=== PATIENT | male | born 1955 | race Caucasian/White ===

== ENCOUNTER 2017-01-14 16:54 | Inpatient (IN) | payer OTHER ==
[~2017-01-14] VITALS: Ht 177.8 cm; Wt 105.2 kg
--- NOTE | ~2017-01-14 | HC ---
[facility] [place] [address] CONSULTATION Name: BLAINE GARDINER WOLF Room #: 311-P ADM IN M.R.#: [id number] Admission: 01/14/17 Attend Phys: Carlos Gonzales MD Discharge: Date of : 55 Report #: [id number] THIS REPORT FOR: //name// CC: LEANDRO physician/PCP Carlos Gonzales DATE OF SERVICE: 01/15/2017 INDICATION: Chest pain. HISTORY OF PRESENT ILLNESS: This is a 61-year-old gentleman presenting with recurrent chest pains. He has complicated cardiac history with previous MN and multiple stent procedures. The majority of which occurred in [facility], had been following ____. He has also been at other institutions including [facility], [place] and [facility]. The patient reports that he previously had a cardiac catheterization at [facility] about 2 months ago. He reports undergoing a balloon angioplasty procedure; however, a stent was not placed. He reports having chest pains on and off. He describes a discomfort in the substernal area, radiating up the left shoulder. He has been also experiencing some abdominal discomfort and vomiting for the past 1 week. He denies any episodes of fever, chills, dyspnea or congestion. PAST MEDICAL HISTORY: CAD with multiple stents, mainly followed at [facility]. Nuclear stress test from 11/2015 is nonischemic from [facility]. Known to have normal LV systolic function. Previous TIA/CVA. History of diabetes mellitus with gastroparesis. COPD, hypertension, hyperlipidemia and arthritis. ALLERGIES: CODEINE, CONTRAST. MEDICATIONS: Include Plavix, Ranexa 1000 mg twice a day, Lipitor, Imdur, carvedilol 25 mg b.i.d., lisinopril, aspirin, Cymbalta, Protonix, insulin. SOCIAL HISTORY: Positive for tobacco use, smoking few cigarettes per day. FAMILY HISTORY: Positive for premature CAD. REVIEW OF SYSTEMS: A full 10-point review of systems performed, only the pertinent positives and negatives are described in the HPI. PHYSICAL EXAMINATION: VITAL SIGNS: Blood pressure is 170/90, heart rate is 60 beats per minute. GENERAL APPEARANCE: This is an overweight male, in no acute respiratory distress. HEAD AND EYES: Normocephalic. Sclerae anicteric. ENT: Oral mucosa moist. [facility] [address] [place] [address] CONSULTATION Name: BLAINE GARDINER DAVEY Room #: 311-P [facility] IN .R.#: [id number] Admission: 01/14/17 Attend Phys: Carlos Gonzales MD Discharge: Date of : 55 Report #: [id number] NECK: Supple. LUNGS: Clear to auscultation. CARDIAC: Regular rate and rhythm, S1 and S2 positive. ABDOMEN: Protuberant, soft, nontender. EXTREMITIES: No cyanosis, no edema. NEUROLOGIC: Alert and oriented x 3. LABORATORY VALUES: Sodium is 136, potassium is 4.3, creatinine is 1.3. Serial troponin levels are negative. ECG reveals sinus rhythm, previous septal MN. No acute ST segment changes. This is unchanged from prior tracings. ASSESSMENT AND PLAN: 1. Chest pain syndrome, his troponin level and ECG are unremarkable. Unclear if this is cardiac related. He has had multiple cardiac procedures, mainly at [facility]. His last procedure according to the patient was at [facility]. I am not convinced that all of his symptoms are ischemic related. Would proceed with noninvasive stress testing. 2. Coronary artery disease/myocardial infarction/stent, continue with medical therapy including Ranexa and nitro. 3. Hypertension elevated, we will need to adjust his medications. 4. Diabetes mellitus, continue meds. Check fingersticks. 5. Hypercholesterolemia, continue with statin therapy. 6. Cerebrovascular accident, no neurologic deficits presently. Thank you for allowing me to participate in the care of your patient. <ELECTRONICALLY SIGNED> By: Jose Sorensen MD 01/15/17 1656 0843 0909 Jose Sorensen MD /nt
--- NOTE | ~2017-01-14 | EKG ---
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
--- NOTE | ~2017-01-14 | EKG ---
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 : 1955 Requested By: Roshni Yousif Order Number: [id number] MD: Woody Cueto Measurements Intervals [place] Rate: 59 P: 44 MS: 171 QRS: 34 QRSD: 88 T: 61 QT: 449 QTc: 445 Interpretive Statements Sinus rhythm Anteroseptal infarct, old Baseline wander in lead(s) V4,V5,V6 Compared to ECG 12/04/2015 07:29:53 No significant changes Electronically Signed On 01-15-2017 9:56:33 CDT by Woody Cueto [email or web address] <ELECTRONICALLY SIGNED> By: Woody Cueto MD, [facility] 01/15/17 0956 0623 0623 Woody Cueto MD, [facility] /EPI
--- NOTE | ~2017-01-14 | H ---
[facility] [place] [address] HISTORY AND PHYSICAL Name: BLAINE GARDINER Room #: 311-P ADM IN M.R.#: [id number] Admission: 01/14/17 Attend Phys: Luis Mancilla Discharge: Date of : 55 Report #: [id number] THIS REPORT FOR: //name// CC: FAM physician/PCP Luis Mancilla ATTENDING PHYSICIAN: Luis Mancilla M.D. PRIMARY CARE PHYSICIAN: Silvia Meier M.D. CHIEF COMPLAINT: Chest pain. HISTORY OF PRESENT ILLNESS: The patient is a 61-year-old male who has a history of extensive coronary artery disease. He states he has at least 20 stents in his heart. He is from [facility] but today, he wanted to take the bus to this area to check on his ex-'s house. He states he is on disability and he does not get out much and he wanted to "go for a ride." While he was on the bus, he started having some chest pain. He said he got diaphoretic. The pain was wheezing and radiated to his left shoulder. He states it felt similar to when he had prior [place]. He states he really has not felt well on all week. He has been having some stomach pains with vomiting and diarrhea as well. He states he takes his Plavix regularly. He denied any shortness of breath. He was able to get the bus to bring him to the ER. He normally sees a hostess cashier, Dr. Scales at [place], which was where he has had most of his stents placed. Although, he also reports that he has been at [facility] and [facility]. He reports his last cardiac catheterization was at [facility] 2 months ago and he was seen by Cardiology there, who told him that some of his stents were getting blocked. He states he has never been a candidate to have an open heart surgery because he is too high risk. He has never had a CABG. He states that he often does have chest pain at home, but he rarely takes nitro. Today, he did not take any nitro today with his chest pain because he did not have with him. He was actually seen here last November for the same thing and had a stress test, which was negative. He also had an echo at that time, which showed an EF of 60% with no valve abnormalities. He is currently asking for shot of pain medication. He states he cannot take pain pills at this time because he is still nauseous. His initial workup in the ER was negative. PAST MEDICAL HISTORY: Coronary artery disease with prior stents, TIAs with a CVA with residual short-term memory problems, gastroparesis, diabetes, hypertension, COPD, anxiety, hyperlipidemia and arthritis. PAST SURGICAL HISTORY: Coronary multiple coronary stents, left arm I and D, laser surgery for kidney stones and rotator cuff repair. ALLERGIES: CODEINE, unknown reaction and CONTRAST DIET, unknown reaction. [facility] [address] [place] [address] HISTORY AND PHYSICAL Name: BLAINE GARDINER STOCKTON Room #: 311-P [facility] IN M.R.#: [id number] Admission: 01/14/17 Attend Phys: Luis Mancilla Discharge: Date of : 55 Report #: [id number] HOME MEDICATIONS: Plavix 75 mg p.o. daily, Ranexa 1000 mg p.o. b.i.d., Lipitor 40 mg p.o. at bedtime, Imdur 30 mg p.o. daily, carvedilol 25 mg p.o. b.i.d., lisinopril 40 mg p.o. daily, aspirin 325 mg p.o. daily, Percocet 10/325 one tab q. 6 hours p.r.n., Cymbalta 60 mg p.o. daily, Protonix 40 mg p.o. daily, NovoLog insulin 50 units with meals and Levemir insulin 80 units b.i.d. SOCIAL HISTORY: The patient continues to smoke two cigarettes per day. At one point, he was smoking up to 1 pack per day since the age of 16. Denies any alcohol or drug use. He currently lives with his brother. FAMILY HISTORY: His mother from an [place] at the age of 61. She was also diabetic. He also has multiple aunts and uncles who have had heart problems. His father from emphysema. No other siblings have had any heart problems. REVIEW OF SYSTEMS: Twelve-point review of systems was reviewed with the patient, otherwise negative unless stated in the HPI. PHYSICAL EXAMINATION: GENERAL: The patient is an alert male, in no acute distress. VITAL SIGNS: Temperature is 37.1, heart rate 87, respirations 18, blood pressure 146/74 and oxygen 98% on room air. HEENT: PERRLA. Sclerae are nonicteric. Oral mucosa is pink and moist. NECK: Supple. No JVD noted. CARDIAC: Normal S1 and S2. No murmurs, rubs or gallops. RESPIRATORY: Breath sounds are clear bilaterally. No wheezing or rhonchi. Breathing is nonlabored. ABDOMEN: Soft, mildly tender on the left side, but no guarding or rigidity. Bowel sounds are positive. VASCULAR: No edema noted. Pedal pulses are 2+. NEUROLOGICAL: The patient is alert and oriented x 3. Speech is clear. He is answering questions appropriately and following commands. No focal neuro deficits noted. SKIN: Intact. No rashes or lesions noted. LABORATORY DATA AND DIAGNOSTIC DATA: WBC is 7.4, hemoglobin 13.7 and platelets 289. Sodium 136, potassium 4.3, BUN is 16, creatinine is 1.3, glucose is 478 and anion gap is 8. LFTs are within normal limits. Troponin is negative. BNP 98. Chest x-ray showed no acute cardiopulmonary process. ASSESSMENT AND PLAN: 1. Recurrent chest pain. The patient has been evaluated in at least 5 hospitals in the city for recurrent chest pain. He last had a cardiac catheterization at [facility]. We will try to get those records. His workup in the Emergency Room was unremarkable. He continues to complain of chest pain and is requesting pain medications. We will add nitroglycerin p.r.n. and we will consult Cardiology too for any further recommendations. Continue with [facility] [address] [place] [address] HISTORY AND PHYSICAL Name: BLAINE GARDINER Room #: 311-P [facility] IN .R.#: [id number] Admission: 01/14/17 Attend Phys: Luis Mancilla Discharge: Date of : 55 Report #: [id number] aspirin and Plavix daily and continue to monitor on telemetry. He is already taking nitrates. 2. Chronic obstructive pulmonary disease with ongoing tobacco abuse. This is stable. Chest x-ray is negative. 3. Diabetes, uncontrolled. We will check hemoglobin A1c. Resume home insulin regimen and add sliding scale insulin with Accu-Cheks a.c. and at bedtime. 4. History of cerebrovascular accident and transient ischemic attacks. Continue with aspirin and Plavix. 5. Hypertension. Blood pressure is stable. Resume home medications and monitor. 6. Recent abdominal pain, nausea and vomiting. This is likely related to his gastroparesis. He is not on any current treatment. Add antiemetics. This may be contributes into his recent stomach pains with nausea and vomiting. 7. Code status: The patient wishes to be a do not resuscitate. We will continue to follow the patient closely throughout the hospitalization and make changes based on clinical status. <ELECTRONICALLY SIGNED> By: NARA Simon 01/15/17 0652 0537 0639 NARA Simon /nt
[~2017-01-14 16:54] MED LIST: ASPIR 8181 MG PO; ASPIRIN325 PO; ATORVASTATIN CA40 MG PO; CARVEDILOL25 MG PO; COREG25 MG PO; CYMBALTA60 MG PO; IMDUR 30 MG TAB30 M1 PO; LEVEMIR SUBQ; LISINOPRIL20 MG PO; NOVOLOG100 UNIT/1 SUBQ; PERCOCET 10-321 EACH PO; PLAVIX 75 MG TA75 M1 PO; PROTONIX40 M1 PO; RANEXA500 MG PO
[2017-01-14 16:56] VITALS: BP 146/74
[2017-01-14 17:41] LABS: ABSOLUTE NEUTROPHILS 3.8 thou/uL (1.4-8.2); EOSINOPHILS 4.1 % (0.0-3.0); HEMATOCRIT 41.8 % (42.0-52.0); HEMOGLOBIN 13.7 gm/dL (14.0-18.0); LYMPHOCYTES 33.8 % (24.0-44.0); MCH 28.6 pg (26.0-34.0); MCHC 32.7 g/dL (28.0-37.0); MCV 87.4 fL (80.0-100.0); MONOCYTES 10.2 % (1.0-8.0); PLATELET COUNT 289 thou/uL (150-400); POLYS 50.9 % (36.0-66.0); RBC 4.78 mil/uL (4.50-6.00); RDW 15.4 % (10.5-14.5); WBC 7.4 thou/uL (4.0-11.0)
[2017-01-14 17:42] LABS: MANUAL DIFF NO
[2017-01-14 19:17] LABS: ALBUMIN 3.3 g/dL (3.4-5.0); ALKALINE PHOSPHATASE 131 U/L (46-116); ANION GAP 8 mmol/L (7-16); BUN 16 mg/dL (7-18); CALCIUM 8.2 mg/dL (8.5-10.1); CHLORIDE 104 mmol/L (98-107); CO2 24 mmol/L (21-32); CREATININE 1.3 mg/dL (0.7-1.3); DIRECT BILIRUBIN 0.1 mg/dL (<0.1-0.3); GLUCOSE 478 mg/dL (74-106); POTASSIUM 4.3 mmol/L (3.5-5.1); SGOT 22 U/L (15-37); SGPT 52 U/L (30-65); SODIUM 136 mmol/L (136-145); TOTAL BILIRUBIN 0.3 mg/dL (<0.1-1.0); TOTAL PROTEIN 6.7 g/dL (6.4-8.2); TROPONIN-I < 0.04 ng/mL (<0.04-0.07)
[2017-01-14 23:10] VITALS: BP 159/82
[2017-01-15] VITALS (7 sets, daily range): BP systolic 114–177; BP diastolic 64–90
[2017-01-15 07:46] LABS: CHOLESTEROL 207 mg/dL (<200); HDL CHOLESTEROL 30 mg/dL (>40); LDL CHOLESTEROL 109 mg/dL (<100); TC:HDL 6.9 Ratio (Not establshd); TRIGLYCERIDE 342 mg/dL (<150); VLDL 68 mg/dL (<40)
[2017-01-16 02:52] VITALS: BP 138/75
[2017-01-16 06:08] LABS: GLYCOHEMOGLOBIN (HGB A1C) 11.7 % (4.8-5.6)
[2017-01-16 07:47] VITALS: BP 139/76
[2017-01-16 14:27] VITALS: BP 139/76
== END 2017-01-16 14:52 | disposition home or self-care (01) | DRG 313 ==
LOC: ER 16:54 → EROBS 19:38 → 3N 19:38
PROVIDERS: Nurse Practitioner Acute Care; Physician Assistant
DX: R07.89 Other chest pain (principal); I25.110 Atherosclerotic heart disease of native coronary artery with unstable angina pectoris; M19.90 Unspecified osteoarthritis, unspecified site; I10 Essential (primary) hypertension; E78.00 Pure hypercholesterolemia, unspecified; E11.65 Type 2 diabetes mellitus with hyperglycemia; J44.9 Chronic obstructive pulmonary disease, unspecified; F41.9 Anxiety disorder, unspecified; E78.5 Hyperlipidemia, unspecified; Z66 Do not resuscitate; Z79.4 Long term (current) use of insulin; Z79.82 Long term (current) use of aspirin; Z79.899 Other long term (current) drug therapy; I69.311 Memory deficit following cerebral infarction; Z88.5 Allergy status to narcotic agent; Z91.041 Radiographic dye allergy status; Z82.49 Family history of ischemic heart disease and other diseases of the circulatory system; Z83.3 Family history of diabetes mellitus; I25.2 Old myocardial infarction
CPT/HCPCS: 10096